=== PATIENT | male | born 1975 | race Caucasian/White ===

== ENCOUNTER 2025-03-10 07:36 | Day surgery (SDC) | payer BC, OTHER ==
[2025-03-10] VITALS (9 sets, daily range): BP systolic 96–152; BP diastolic 62–101
[~2025-03-10] VITALS: Ht 177.8 cm; Wt 108.0 kg
[~2025-03-10 07:36] MED LIST: EXTRA PAIN REL1 EAC2 PO; IBUP800 PO; LISI5 PO; MULTI-VITAMIN1 EAC2 PO
[2025-03-10] MEDS ORDERED: CeFAZolin Sodium 2,000 MG in NS 100 ML IV SCH (07:40)
--- NOTE | 2025-03-10 07:55 | NUR ---
, HUMBERTO, ACCOMPANIED PATIENT TO DAY SURGERY. PATIENT GAVE RING AND WALLET TO FOR SAFE KEEPING.
[2025-03-10] MEDS ORDERED: Bupivacaine 0.5% HCl 5 MG/ML 30MLVIAL ONE (09:43)
[2025-03-10] MEDS ORDERED: FentaNYL Citrate 50 MCG/ML 2 ML Injection ONE (09:46)
[2025-03-10] MEDS ORDERED: Midazolam HCl 1MG / ML 2ML Vial ONE (09:46)
[2025-03-10] MEDS ORDERED: Dexamethasone Sod Phos 10 MG/ML 1ML VIAL ONE ×2 (09:47→10:12)
[2025-03-10] MEDS ORDERED: Rocuronium Bromide 10 MG/ML 5ML Injection IV ONE (09:47)
[2025-03-10] MEDS ORDERED: HYDROmorphone HCl/Pf 1MG SYR IV PRN ×2 (09:55→10:00)
[2025-03-10] MEDS ORDERED: FentaNYL Citrate 50 MCG/ML 2 ML Injection IV PRN ×2 (10:00)
[2025-03-10] MEDS ORDERED: Ondansetron HCl 2 MG / ML 2ML Vial IV PRN (10:00)
[2025-03-10] MEDS ORDERED: Albuterol 2.5 MG/3 ML VIAL INH PRN (10:00)
[2025-03-10] MEDS ORDERED: Prochlorperazine Edisylate 10 mg Vial IV PRN (10:00)
[2025-03-10] MEDS ORDERED: Phenylephrine HCl 100 MCG/ML-NS 10MLSYR (1MG/10ML) ONE (10:31)
[2025-03-10] MEDS ORDERED: Ondansetron HCl 2 MG / ML 2ML Vial ONE (11:01)
[2025-03-10] MEDS ORDERED: Sugammadex Sodium 200 MG/2ML SDV (100 MG/ML) ONE (11:02)
[2025-03-10] MEDS ORDERED: HYDROcodone 5-APAP 325 TAB PO PRN (11:25)
--- NOTE | 2025-03-10 12:00 | NUR ---
DISCHARGE PT A&O4/VSS/RA/FOLLOWS COMMANDS/C&DBS/EYES OPEN - TALKING - PLEASANT, DENIES PAIN, DENIES NAUSEA, ABD DRESSING CDI, IV DC'D, DC INS PROVIDED TO PT AND /REP UNDERSTANDING/COPY SENT, LEFT VIA WC WITH RN TO GO HOME WITH / TECHNOLOGIST DEVELOPMENT WITH ALL PERSONAL POSSESSIONS.
== END 2025-03-10 23:00 | disposition home or self-care (01) ==
LOC: ORSCMMR 07:36 → ORD 09:00 → ORSCMMR 09:00
PROVIDERS: Surgery
PROC: 0WUF0JZ Supplement Abdominal Wall with Synthetic Substitute, Open Approach (ICD-10-PCS; principal; 2025-03-10 09:00)
DX: K42.0 Umbilical hernia with obstruction, without gangrene (principal); I10 Essential (primary) hypertension; R73.03 Prediabetes; E78.5 Hyperlipidemia, unspecified; Z79.899 Other long term (current) drug therapy
CPT/HCPCS: C1781; J0690; J1100; J2250; J2371; J2405; J2704; J3010; J7120